=== PATIENT | female | born 1980 | race Caucasian/White ===

== ENCOUNTER → 2017-05-28 | Day surgery (SDC) | payer OTHER ==
[2017-05-28] VITALS (10 sets, daily range): BP systolic 116–119; BP diastolic 69–78; PULSE 78–86; RESP 14–21; O2SAT 95–100
[~2017-05-28] VITALS: Ht 165.1 cm; Wt 102.7 kg
[~2017-05-28] MED LIST: Atropine 0.4 mg/mL Inj IVPUSH PRN; Bacitracin Ointment Packet TOPICAL ONE; Bupivacaine-MPF 0.5% 30 mL Inj INFILTRATE ONE; CeFAZolin 2 Gm/50 mL D5W Duplex Bag IV ONE; CeFAZolin Inj 2 GM in Dextrose 5% 50 ML IV ONE; Dexamethasone 4 mg/mL Inj IVPUSH PRN; Dexamethasone 4 mg/mL Inj ONE; EPHEDrine Sulfate 50 mg/mL Inj IVPUSH PRN; Gentamicin 40 mg/mL 2 mL Inj IRRIGATION ONE; HYDROmorphone 1 mg/mL Inj IVPUSH PRN; IBUP-1827 PO; Labetalol 5 mg/mL 20 mL Inj IV PRN; Lactated Ringer's 1,000 ML IV SCH; Lactated Ringer's 500 ML IV PRN; Lidocaine PF 1% 30 mL Inj INFILTRATE ONE; MetoCLOpramide 5 mg/mL 2 mL Inj IVPUSH PRN; MetoCLOpramide 5 mg/mL 2 mL Inj ONE; OXYC-465 PO; Ondansetron 2 mg/mL 2 mL Inj IVPUSH PRN; Ondansetron 2 mg/mL 2 mL Inj ONE; Phenylephrine 10,000 mCg/mL Inj IVPUSH PRN; Propofol 10,000 mCg/mL 20 mL Inj ONE; fentaNYL-PF 50 mCg/mL 2 mL Inj IVPUSH PRN; fentaNYL-PF 50 mCg/mL 2 mL Inj ONE; hydrALAZINE 20 mg/mL Inj IVPUSH PRN; oxyCODONE-Acetamin 5-325 mg Tablet PO PRN
[2017-05-28] MEDS: Lactated Ringer's 1,000 ML IV SCH ×2 (09:54→11:10)
--- NOTE | 2017-05-28 10:32 | PCM.HPANE ---
Patient Data Date of Service: May 28, 2017 Surgeon Admitting Provider: Attending Provider:Keven Mccormick DPM Primary Care Physician:Radha Other Provider:Esa Welch Anesthesia Reason for Visit Right Foot Hallux Rigidus Ht/WT & BMI Height (Feet): 5 Height (Inches): 5 Weight (Kilograms): 102.7 Body Mass Index 37.00 Allergies Coded Allergies: bupropion (Verified Allergy, Severe, angry out of control behavior, ) gabapentin (Verified Allergy, Unknown, headaches, 05/27/17) hydrocodone (Verified Allergy, Unknown, nausea, 05/27/17) risperidone (Verified Allergy, Unknown, tremors, 05/27/17) venlafaxine (Verified Allergy, Unknown, anxiety, 05/27/17) Past Anesthesia History Anesthesia History: Denies:: Abnormal Airway, Anesthesia Reactions, Difficult Intubation Diabetes History Hx Diabetes?: No Medications Home Meds Incl Beta Billy: No Reported Medications oxyCODONE-Acetaminophen 7.5-325 mg 1 Each Tablet1 Tab PO Q4H PRN For Pain Ref 0 05/27/17 Ibuprofen 600 Mg [id number] Mg PO QID PRN For Pain Ref 0 05/27/17 Discontinued Reported Medications oxyCODONE-Acetaminophen 5-325 mg 1 Each Tablet1 Tab PO Q6H PRN For Pain Ref 0 04/08/17 Diazepam (Valium)5 Mg Tablet5 Mg PO HS PRN For Spasm 30 Days Ref 0 04/08/17 Ibuprofen 600 Mg [id number] Mg PO QID PRN For Pain Ref 0 04/08/17 [docqlace] No Conflict [id number] Mg BID PRN For Constipation 04/08/17 Acyclovir 400 Mg [id number] Mg PO DAILY Ref 0 04/08/17 History History of ENT Problems?: No HEENT History: Positive for:: TMJ (TMJ sx) Denies:: Abnormal Airway Difficult Intubation Dysphagia Hearing Problem Sinus Problem Denture Type: None Teeth Condition: Broken Teeth (right upper) Hx of Heart Problems?: No Cardiovascular History: Denies:: Cardiac Surgery Chest Pain Hx of Respiratory Problem?: No Respiratory History: Denies:: Oxygen Administration Use of C-PAP Machine Use of Inhalers / NEBS Hx Neurologic Problems?: No Neurological History: Positive for:: Headaches Denies:: Alzheimer's Disease CVA Dementia Dizziness Parkinson's Disease Seizures TIA Hx of GI Problems?: No Hx of Problems?: No Genitourinary History: Denies:: Urinary Tract Infection Female Hx: Denies:: Currently (HX: HYSTERECTOMY) Problems with Breasts? Skin History: Denies:: History Skin Disorders? Pressure Ulcers Hx Musculoskeletal Problems?: Yes Musculoskeletal History: Positive for:: Back Injury (chronic low back pain, Sciatica) Musculoskeletal Trauma (right foot bunion current admission problem) Osteoarthritis Denies:: Joint Replacement Hx of Psycho/Social Problems?: Yes Psycho Social History: Positive for:: Bipolar Disorder Hx Surgeries?: Yes (tonsils, tubal, left knee arthroscopy) Hx Any Other Health Problems?: Yes Other History: Denies:: Cancer History Blood Transfusions: Positive for:: Accept Blood Products? Denies:: Blood Transfusions Hx Diabetes: No Hx Alcohol Use: NoHx Substance Use: NoHave You Smoked inLast 12 mo: No Stop/Bang Treated for Sleep Apnea?: No Do You Have a CPAP Machine?: No S-Snoring: Do You Snore Loudly: No T-Tired: feel tired, fatigued: No O-Obsered: Observed not breath: No P-Blood Pressure: treated: No B- Body Mass Index > 35 kg/m2: Yes A- Age over 50: No N- Neck Large Circumference: No G- Gender Male: No ROB Total Score: 1 ROB Risk Assessment: Low Risk, <3 Yes Risk Assessment Category Category 1A: Patient has history of documented sleep apnea, and HAS NOT received any narcotic, sedative or anesthesia administration during this stay. Category 1B: Patient has history of documented sleep apnea, and HAS received any narcotic , sedative or anesthesia administration during this stay Category 2: Patient has SUSPECTED Obstructive Sleep Apnea, and HAS received any narcotic , sedative or anesthesia administration during this stay. Category 3: Patient has SUSPECTED Obstructive Sleep Apnea and HAS NOT received narcotic, sedative or anesthesia administration during this stay. Category 4: Outpatient in Procedural Areas with known sleep apnea or who screen positive for High Risk via the STOP/BANG questionnaire. Exam Exam Vital Signs Vital Signs Date Time Temp Pulse Resp B/P Pulse Ox O2 Delivery O2 Flow Rate FiO2 05/28/17 09:59 35.9 81 16 116/70 96 Room Air General Appearance: Alert, Oriented X3, Cooperative HEENT/AIRWAY: MP 1, Neck Movement (Full) Lungs: Clear to Auscultation, Normal Air Movement Heart: Exam Unremarkable, Regular Rate/Rhythm, Normal S1 Meds/Labs/Diagnostics Admission Meds Current Medications Lactated Ringer's (Lr) 1,000 ml @ 120 mls/hr Q8H20M IV Last administered on t 09:54; Start 05/28/17 at 05:00; Stop 05/28/17 at 13:19 Plan Impression Patient chart reviewed, patient interviewed and anesthestic plan with risks, benefits, and alternatives discussed, and informed consent obtained. NPO per Anesth. Guidelines: Yes ASA Physical Status: ASA2 Mod Systemic Disease Anesthetic Plan: GA Bene/Risks/Altern/Consents: Yes HP Complete Prior to Induction: Yes Albert Marinelli MD May 28, 2017 10:32
--- NOTE | 2017-05-28 13:16 | PCM.ANEP1 ---
Post Anesthesia PACU Phase 1 Assessment Date of Service: May 28, 2017 Vital Signs Vital Signs Date Time Temp Pulse Resp B/P Pulse Ox O2 Delivery O2 Flow Rate FiO2 05/28/17 13:12 36.8 85 20 118/76 100 Simple Mask 8 05/28/17 09:59 35.9 81 16 116/70 96 Room Air Anesthetic Administered: GA Level of Alertness: Sleepy, easy to arouse HUYNH's with Equal Strength: Yes Pain: No Nausea or Vomiting: No CV Function & Hydration Stable: Yes Airway Device: Oxygen Delivery: Simple Mask Lungs: Normal Air Movement Dermatome Level: Full Sensation PACU Phase 2 Assessment Complications: No Follow up Care: N/A Patient Instructions Provided: N/A Albert Marinelli MD May 28, 2017 13:16
--- NOTE | 2017-05-28 13:28 | PCM.PODPO ---
Podiatry Operative Report Date of Service: May 28, 2017 Date of Service May 28, 2017 Pre Operative Diagnosis Hallux rigidus right Post Operative Diagnosis Same Procedure Arthrodesis first metatarsophalangeal joint right foot Surgeon Surgeon: Keven Mccormick DPM Assistants: None Indication for Procedure End-stage hallux rigidus right foot Findings Same Details of Procedure Patient was brought to the operating suite and placed on the table in the supine position. Surgical timeout was observed. Upon initiation of general anesthesia by the anesthesiologist the right forefoot was anesthetized utilizing a proximal 10 cc 1% lidocaine plain and 0.5% Marcaine plain in a one- to-one mixture via a Garcia block. A well-padded pneumatic ankle tourniquet was applied and the foot prepped and draped in the usual aseptic manner. The foot was exsanguinated utilizing an Esmarch bandage, the cuff was inflated and attention directed to the dorsum of the first metatarsophalangeal joint. A dorsal linear incision was made slightly medial to the extensor hallucis longus tendon and deepened via sharp and blunt dissection with care taken to cauterize superficial vessels. A linear periosteal and capsular incision was made and some capsular dissection performed exposing the grossly arthritic joint. There was noted to be a complete absence of hyalin cartilage on the first metatarsal head and proximal phalangeal base. Exuberant periarticular hyperostosis was noted and these were resected with a rongeur forcep. The medial eminence was resected with a instrumentation. Utilizing the cup and cone reamer provided with the Arthrex first MPJ fixation plate set first metatarsal head was denuded of any residual cartilage and subchondral plate to the level of bleeding bone. The same procedure was performed on the base of the proximal phalanx. Both surfaces were fenestrated with a 1.3 L low speed drill. Trial fitting was performed and provisional fixation achieved utilizing an obliquely oriented K wire. Proper alignment was confirmed fluoroscopically, hallux was in 10 valgus and approximately 10 dorsiflexion. The excellent bone to bone coaptation of the prepared bone surfaces. Initial fixation was achieved utilizing an Arthrex oblique headless compression screw oriented from distal medial to proximal lateral with excellent compression and silk solidity of fixation achieved. Next a 5 hole contoured first MPJ locking plate was applied dorsally and fixated utilizing a 3.0 cortical locking screws. Fixation was extremely rigid. The dorsomedial bony prominence was recontoured site was copiously irrigated with antibiotic solution capsular tissues were reapproximated with 4-0 Vicryl, subcutaneous tissues with 4-0 Vicryl and skin with 4-0 Prolene. The tourniquet was released prior to closure and normal perfusion returned to the entire foot promptly. Mild bleeding was stayed with direct pressure. Additional 6 cc 0.5% Marcaine was infiltrated. Antibiotic ointment Adaptic dressing was by a noncompressive gauze bandage. Postoperative boot was fit, the patient was extubated uneventfully, transferred to the [facility] and left the operating suite in apparently satisfactory condition. There were no complications. Grafts, Implants: Implants-See Implant Record Complications There were no periprocedural complications identified. Condition Stable Anesthetic Administered: GA Drains: None Catheters: None Output, Estimated Blood Loss: 10 Blood Admin during surgery: No Surgical Cast or Splint: Post-op Boot Surgical Specimen Removed: No Specimen sent to Pathology: No Post Operative Plan Postoperative instructions have been reviewed verbally and in writing, pain medication has been prescribed and dosing reviewed and patient will return in 5 days for recheck Keven Mccormick DPM May 28, 2017 13:28
== END | disposition home or self-care (01) ==
LOC: SAS 09:38
PROVIDERS: ATTEND Podiatrist
DX: M20.21 Hallux rigidus, right foot (principal); M54.5 Low back pain; F41.1 Generalized anxiety disorder; M19.90 Unspecified osteoarthritis, unspecified site; F31.9 Bipolar disorder, unspecified; Z90.710 Acquired absence of both cervix and uterus
CPT/HCPCS: 28750; C1713; J0690; J1100; J1170; J1580; J1885; J2250; J2405; J2704; J2765; J3010; J7120